=== PATIENT | female | born 1940 | race Caucasian/White ===

== ENCOUNTER → 2016-11-16 | Day surgery (SDC) | payer MEDICARE, OTHER ==
[~2016-11-16] MED LIST: ACETAMINOPHEN/HYDROcodone 325 MG/5 MG TAB ONE; ALPR.25 PO; BACITRACIN IM FOR SOLN 50,000 UNIT VIAL ONE; BLADDER MED PO; BUPIVACAINE/EPINEPHRINE 0.25% PF 30 ML VIAL ONE; BYST5TAB2 PO; CYMB60CA PO; GABA300C5 PO; GENTAMICIN SULFATE 80 MG/2 ML VIAL ONE; HYDR-3533 PO; LACTATED RINGER'S 1000 ML INJ 1,000 ML ONE; MORPHINE SULFATE 4 MG/ML INJ ONE; ONDANSETRON HCL 4 MG/2 ML VIAL IV PUSH ONE; PROPOFOL 200 MG/20 ML AMP IV ONE; SODIUM CHLOR 0.9% 250 ML INJ 250 ML IV ONE; SODIUM CHLORIDE 0.9% 20 ML VIAL ONE; VANCOMYCIN HCL 1000 MG VIAL ONE; ceFAZolin 2 GM PREMIX 50 ML ONE; ceFAZolin INJ 1,000 MG VIAL ONE
--- NOTE | 2016-11-16 10:14 | TN ---
cc: HANANE LOPEZ DATE OF SURGERY 11/16/2016 PREOPERATIVE DIAGNOSES 1. Osteoarthritis of the right knee. 2. Chondromalacia patellae. POSTOPERATIVE DIAGNOSIS 1. Osteoarthritis of the right knee. 2. Chondromalacia patellae. PROCEDURE 1. Right knee unicompartmental replacement arthroplasty, medial compartment 2. Partial patellectomy. SURGEON Hanane Lopez MD STEWARD/STEWARDESS TOURIST CLASS Tomas Lopez MD ANESTHESIA General. ESTIMATED BLOOD LOSS 100 cc. INDICATION This is a 76-year-old female with significant medial compartment arthritis. The patient has had extensive conservative care documented in the attached records including injections of cortisone, viscoelastic supplements, altered activities. She had a brace at one time. The patient continued to be painful and symptomatic. She presents for surgical treatment. NOTE Tomas Lopez MD, was my first aid officer through the entire surgical procedure. In my medical opinion his skill and care was necessary for the proper management of this patient. PROCEDURE The patient was brought to the operating, anesthetized in supine position. The right leg was placed in the arthroscopy jacques. The right leg was scrubbed with alcohol, followed by Hibiclens, followed by Chloraprep and draped sterilely. Antibiotics were given within a one-hour time limit. A time-out was done. After exsanguination, the tourniquet was inflated to 250 mmHg. An anterior incision was made and then median parapatellar arthrotomy was performed. The medial facet of the patella was resected with the oscillating saw, decreasing contacting forces. Deep retractors were positioned. There was severe arthritis in the medial compartment which was [id number]. The posterior facet was resected using the sizing guide. The tibia was then contoured free-hand for a #2 tibial inlay. The femur was then contoured for a #2 femoral inlay. A medial osteophyte was removed. The trial reduction showed excellent balancing in flexion and extension. A field block with 0.25% Marcaine with epinephrine was utilized. On the back table methacrylate was mixed and the components were cemented. Excess cement was removed. The tourniquet was let down. Hemostasis was controlled. A deep drain was brought through a separate stab incision. The arthrotomy was repaired with #2 Ticron sutures, the subcutaneous tissue with 2-0 Vicryl suture and the skin with running 2-0 and 3-0 Vicryl followed by benzoin and Steri-Strips. Sponge count, needle counts and instrument counts were all correct. The patient tolerated the procedure well and was taken to the recovery room in satisfactory condition. COMPONENTS Company: [employer]. Femur: Size 2, right medial, cemented, metal. Tibia: Size 2, 6.5 mm, all polyethylene, cemented . Hanane MD ESTRELLA Stephenson/SSB /9:45 AM /9:54 AM
== END | disposition home or self-care (01) ==
LOC: ESDC 06:02
PROVIDERS: ATTEND Orthopaedic Surgery Orthopaedic Surgery of the Spine
DX: M17.11 Unilateral primary osteoarthritis, right knee (principal); M22.41 Chondromalacia patellae, right knee
CPT/HCPCS: 01400; 27446; C1776; J0690; J1580; J2270; J2405; J3010; J3370; J7050; J7120

== ENCOUNTER 2017-11-12 03:45 | Emergency (ER) | payer MEDICARE, OTHER ==
[~2017-11-12] VITALS: Ht 167.6 cm; Wt 65.0 kg
[~2017-11-12 03:45] MED LIST changes: -ACETAMINOPHEN/HYDROcodone 325 MG/5 MG TAB ONE; -BACITRACIN IM FOR SOLN 50,000 UNIT VIAL ONE; -BUPIVACAINE/EPINEPHRINE 0.25% PF 30 ML VIAL ONE; -GENTAMICIN SULFATE 80 MG/2 ML VIAL ONE; -LACTATED RINGER'S 1000 ML INJ 1,000 ML ONE; -MORPHINE SULFATE 4 MG/ML INJ ONE; -ONDANSETRON HCL 4 MG/2 ML VIAL IV PUSH ONE; -PROPOFOL 200 MG/20 ML AMP IV ONE; -SODIUM CHLOR 0.9% 250 ML INJ 250 ML IV ONE; -SODIUM CHLORIDE 0.9% 20 ML VIAL ONE; -VANCOMYCIN HCL 1000 MG VIAL ONE; -ceFAZolin 2 GM PREMIX 50 ML ONE; -ceFAZolin INJ 1,000 MG VIAL ONE
[2017-11-12 04:11] VITALS: BP 141/79; PULSE 64; RESP 20; TEMP 97.5; O2SAT 100
[2017-11-12 04:27] VITALS: BP 144/81; PULSE 61; RESP 20; TEMP 97.5; O2SAT 100
[2017-11-12] MEDS ORDERED: HYDR-3516 (04:35)
[2017-11-12] MEDS ORDERED: DIAZ5TAB PO (04:36)
--- NOTE | 2017-11-12 04:43 | PD ---
HPI Chief Complaint: GI Complaint Time Seen by Provider: 04:31 Travel History International Travel<30 days: No Contact w/Intl Traveler<30days: No Traveled to known affect area: No History of Present Illness HPI The patient is a 77-year-old female that has a history of Cruz's esophagus and complains of periumbilical pain and midline epigastric pain along with nausea, vomiting and abdominal bloating tonight. After the pain began she took several hydrocodone tablets and then took 3, 5 mg diazepam tablets. She describes her pain as a 10 over 10 and dull type pain. The patient was just told that she has Crohn's disease. PFSH Past Medical History Anxiety: Yes Depression: Yes Cancer: Yes Cardiovascular Problems: Yes Hypertension: Yes Insomnia: Yes Respiratory: Yes (slight asthma) Tetanus Vaccination: Unknown Past Surgical History Tonsillectomy: Yes Other Surgery: Yes (r partial nephrectomy r/t ca, sinus sx) Social History Alcohol Use: Yes (cocktail daily at 5pm) Tobacco Use: No (quit 32 years ago) Substance Use: No Allergies-Medications (Allergen,Severity, Reaction): Coded Allergies: No Known Allergies (Verified Adverse Reaction, Unknown, 11/12/17) Reported Meds & Prescriptions Reported Meds & Active Scripts Active Reported Diazepam 5 Mg Tab 5 Mg PO TID PRN Hydrocodone-Acetamin 5-325 mg (Hydrocodone/Acetaminophen) 5 Mg-325 Mg Tablet [Bladder Med] 1 Tab PO DAILY Gabapentin 300 Mg Cap 300 Mg PO HS Cymbalta DR (Duloxetine HCl) 60 Mg Capdr 60 Mg PO DAILY Bystolic (Nebivolol) 5 Mg Tab 5 Mg PO DAILY Xanax (Alprazolam) 0.25 Mg Tab 0.25 Mg PO Q6H PRN Review of Systems Except as stated in HPI: all other systems reviewed are Neg Physical Exam Narrative GENERAL: The patient is alert, oriented 3 and slight apparent distress with her abdominal discomfort. Her vital signs show blood pressure 141/79 but are otherwise normal. SKIN: Focused skin assessment warm/dry. HEAD: Atraumatic. Normocephalic. EYES: Pupils equal and round. No scleral icterus. No injection or drainage. ENT: No nasal bleeding or discharge. Mucous membranes pink and moist. NECK: Trachea midline. No JVD. CARDIOVASCULAR: Regular rate and rhythm. No murmur appreciated. RESPIRATORY: No accessory muscle use. Clear to auscultation. Breath sounds equal bilaterally. GASTROINTESTINAL: Abdomen soft, with slight tenderness to direct palpation in the periumbilical area and midline epigastrium, nondistended. Hepatic and splenic margins not palpable. No guarding or rebound is present. Christensen's sign is negative. MUSCULOSKELETAL: No obvious deformities. No clubbing. No cyanosis. No edema. NEUROLOGICAL: Awake and alert. No obvious cranial nerve deficits. Motor grossly within normal limits. Normal speech. PSYCHIATRIC: Appropriate mood and affect; insight and judgment normal. Data Data Last Documented VS Vital Signs Date Time Temp Pulse Resp B/P (MAP) Pulse Ox O2 Delivery O2 Flow Rate FiO2 11/12/17 06:32 78 18 144/76 (98) 97 Room Air 11/12/17 04:27 97.5 Orders Orders Complete Blood Count With Diff (11/12/17 04:44) Comprehensive Metabolic Panel (11/12/17 04:44) Lipase (11/12/17 04:44) Urinalysis - C+S If Indicated (11/12/17 04:44) Ct Abd/Pel W Iv Contrast(Rout) (11/12/17 04:44) Iv Access Insert/Monitor (11/12/17 04:44) Ecg Monitoring (11/12/17 04:44) Oximetry (11/12/17 04:44) Morphine Inj (Morphine Inj) (11/12/17 04:45) Ondansetron Inj (Zofran Inj) (11/12/17 04:45) Pantoprazole Inj (Protonix Inj) (11/12/17 04:45) Sodium Chlor 0.9% 1000 Ml Inj (Ns 1000 M (11/12/17 04:44) Sodium Chloride 0.9% Flush (Ns Flush) (11/12/17 04:45) Famotidine Inj (Pepcid Inj) (11/12/17 04:45) Iohexol 350 Inj (Omnipaque 350 Inj) (11/12/17 06:21) Labs Laboratory Tests Test 11/12/17 04:58 White Blood Count 14.3 TH/MM3 Red Blood Count 4.53 MIL/MM3 Hemoglobin 14.1 GM/DL Hematocrit 41.3 % Mean Corpuscular Volume 91.1 FL Mean Corpuscular Hemoglobin 31.0 PG Mean Corpuscular Hemoglobin Concent 34.1 % Red Cell Distribution Width 12.1 % Platelet Count 338 TH/MM3 Mean Platelet Volume 7.7 FL Neutrophils (%) (Auto) 79.7 % Lymphocytes (%) (Auto) 10.3 % Monocytes (%) (Auto) 5.8 % Eosinophils (%) (Auto) 1.7 % Basophils (%) (Auto) 2.5 % Neutrophils # (Auto) 11.4 TH/MM3 Lymphocytes # (Auto) 1.5 TH/MM3 Monocytes # (Auto) 0.8 TH/MM3 Eosinophils # (Auto) 0.2 TH/MM3 Basophils # (Auto) 0.4 TH/MM3 CBC Comment DIFF FINAL Differential Comment Blood Urea Nitrogen 25 MG/DL Creatinine 1.20 MG/DL Random Glucose 93 MG/DL Total Protein 8.1 GM/DL Albumin 3.9 GM/DL Calcium Level 9.6 MG/DL Alkaline Phosphatase 75 U/L Aspartate Amino Transf (AST/SGOT) 16 U/L Alanine Aminotransferase (ALT/SGPT) 21 U/L Total Bilirubin 0.4 MG/DL Sodium Level 138 MEQ/L Potassium Level 3.9 MEQ/L Chloride Level 105 MEQ/L Carbon Dioxide Level 26.5 MEQ/L Anion Gap 7 MEQ/L Estimat Glomerular Filtration Rate 44 ML/MIN Lipase 227 U/L MDM Medical Decision Making Medical Screen Exam Complete: Yes Emergency Medical Condition: Yes Medical Record Reviewed: Yes Interpretation(s) The CT abdomen/pelvis shows a nonobstructing bowel gas pattern with no inflammatory change. The terminal ileum is within normal limits. There is a large sclerotic area involving the left medial ileum which is nonspecific. This could represent a large bowl island. Metastatic disease is less likely. Differential Diagnosis Exacerbation of Crohn's disease, irritable bowel syndrome, small bowel obstruction, colitis, cholecystitis, appendicitis, diverticulitis Narrative Course The patient is feeling normal now, she states she could go dancing. It is now 0650. She may have had a partial small bowel obstruction that relieved itself. Nevertheless, the patient will need to follow-up with a primary care physician. She should increase liquid intake. She is given Zofran for nausea this time. Diagnosis Primary Impression: Exacerbation of Crohn's disease Additional Instructions: Crease clear liquid intake and follow-up with her primary care physician. If you have nausea I prescribed Zofran, one tablet every 6 hours as needed. This probably was the Crohn's disease acting up. Med/Other Pt SpecificInfo: Prescription(s) given Scripts Ondansetron (Zofran) 4 Mg Tab 4 MG PO Q6HR Y for NAUSEA OR VOMITING, #21 TAB 0 Refills Prov: Frankie Nicole MD 11/12/17 Disposition: 01 DISCHARGE HOME Condition: Stable Frankie Nicole MD Nov 12, 2017 04:43
[2017-11-12] MEDS ORDERED: SODIUM CHLOR 0.9% 1000 ML INJ 1,000 ML IV SCH (04:44)
[2017-11-12] MEDS ORDERED: ONDANSETRON HCL 4 MG/2 ML VIAL IVP ONE (04:45)
[2017-11-12] MEDS ORDERED: FAMOTIDINE 20 MG/2 ML VIAL IV PUSH ONE (04:45)
[2017-11-12] MEDS ORDERED: SODIUM CHLORIDE 0.9% FLUSH 10 ML FLUSH IV FLUSH PRN (04:45)
[2017-11-12] MEDS ORDERED: MORPHINE SULFATE 4 MG/ML INJ IV PUSH ONE (04:45)
[2017-11-12] MEDS ORDERED: PANTOPRAZOLE SODIUM 40 MG VIAL IVP ONE (04:45)
[2017-11-12 05:31] LABS: AUTOMATED NEUTROPHIL # 11.4 TH/MM3 (1.8-7.7); BASOPHIL # 0.4 TH/MM3 (0-0.2); BASOPHIL % 2.5 % (0.0-2.0); EOSINOPHIL # 0.2 TH/MM3 (0-0.4); EOSINOPHIL % 1.7 % (0.0-4.0); HEMATOCRIT 41.3 % (35.0-46.0); HEMOGLOBIN 14.1 GM/DL (11.6-15.3); LYMPH % 10.3 % (9.0-44.0); LYMPHOCYTE # 1.5 TH/MM3 (1.0-4.8); MEAN CELL VOLUME 91.1 FL (80.0-100.0); MEAN CORPUSCULAR HGB CONC 34.1 % (32.0-36.0); MEAN PLATELET VOLUME 7.7 FL (7.0-11.0); MONO % 5.8 % (0.0-8.0); MONOCYTE # 0.8 TH/MM3 (0-0.9); NEUT % 79.7 % (16.0-70.0); PLATELET COUNT 338 TH/MM3 (150-450); RED BLOOD COUNT 4.53 MIL/MM3 (4.00-5.30); RED CELL DISTRIBUTION WIDTH 12.1 % (11.6-17.2); WHITE BLOOD COUNT 14.3 TH/MM3 (4.0-11.0)
[2017-11-12 05:43] LABS: CHLORIDE 105 MEQ/L (98-107); SODIUM (NA) 138 MEQ/L (136-145)
[2017-11-12 05:47] LABS: ALBUMIN 3.9 GM/DL (3.4-5.0); BICARBONATE 26.5 MEQ/L (21.0-32.0); CALCIUM 9.6 MG/DL (8.5-10.1); GLUCOSE,RANDOM 93 MG/DL (74-106)
[2017-11-12 05:48] LABS: BLOOD UREA NITROGEN 25 MG/DL (7-18)
[2017-11-12 05:50] LABS: ALT (GPT) 21 U/L (10-53); AST (GOT) 16 U/L (15-37); GLOMERULAR FILTRATION RATE 44 ML/MIN (>89)
[2017-11-12 05:52] LABS: TOTAL BILIRUBIN ADULT 0.4 MG/DL (0.2-1.0); TOTAL PROTEIN 8.1 GM/DL (6.4-8.2)
[2017-11-12 05:53] LABS: ALKALINE PHOSPHATASE 75 U/L (45-117)
[2017-11-12 06:02] VITALS: O2SAT 97
[2017-11-12] MEDS ORDERED: IOHEXOL 350 MG/ML 10 ML VIAL (for RAD DIAG) IVCONTRAST ONE (06:21)
--- NOTE | 2017-11-12 06:28 | RADRPT ---
EXAM DATE/TIME: 11/12/2017 06:05 [facility] COMPARISON: No previous studies available for comparison. INDICATIONS : Periumbilical pain. Nausea. Vomiting. IV CONTRAST: 100 cc Omnipaque 350 (iohexol) IV ORAL CONTRAST: No oral contrast ingested. RADIATION DOSE: 10.78 CTDIvol (mGy) MEDICAL HISTORY : Hypertension. Renal cell carcinoma. SURGICAL HISTORY : Partial right nephrectomy. ENCOUNTER: Initial ACUITY: 1 day PAIN SCALE: 8/10 LOCATION: Umbilical TECHNIQUE: Volumetric scanning of the abdomen and pelvis was performed. Using automated exposure control and ad justment of the mA and/or kV according to patient size, radiation dose was kept as low as reasonably achievable to obtain optimal diagnostic quality images. DICOM format image data is available electro nically for review and comparison. FINDINGS: LOWER LUNGS: The visualized lower lungs are clear. LIVER: Homogeneous density without lesion. There is no dilation of the biliary tree. No calcified gallston es. The gallbladder is unremarkable. SPLEEN: Normal size without lesion. PANCREAS: Within normal limits. KIDNEYS: Normal in size and shape. There is no mass, stone or hydronephrosis. ADRENAL GLANDS: Within normal limits. VASCULAR: There is no aortic aneurysm. BOWEL/MESENTERY: No oral contrast was given limiting the sensitivity. The stomach, small bowel, and colon demonstrate no acute abnormality. There is no free intraperitoneal air or fluid. ABDOMINAL WALL: Within normal limits. RETROPERITONEUM: There is no lymphadenopathy. BLADDER: No wall thickening or mass. REPRODUCTIVE: Within normal limits. INGUINAL: There is no lymphadenopathy or hernia. MUSCULOSKELETAL: Osteopenia, scoliosis and degenerative changes are present. There is a area of sclerotic bone density involving the left medial ilium measuring up to approximately 3.5 x 1.4 cm. CONCLUSION: 1. Nonobstructive bowel gas pattern with no inflammatory change. The terminal ileum is within normal limits. 2. Large sclerotic area involving the left medial ilium which is nonspecific. This could represent a large bone island. Metastatic disease is less likely. Ramiro Valle MD on November 12, 2017 at 6:24 Board Certified Radiologist. This report was verified electronically.
[2017-11-12 06:32] VITALS: BP 144/76; PULSE 78; RESP 18; O2SAT 97
[2017-11-12] MEDS ORDERED: ZOFR4TAB PO (06:52)
== END 2017-11-12 07:12 | disposition home or self-care (01) ==
LOC: PHED 03:45
DX: K50.90 Crohn's disease, unspecified, without complications (principal); K22.70 Barrett's esophagus without dysplasia; F41.9 Anxiety disorder, unspecified; F32.9 Major depressive disorder, single episode, unspecified; I10 Essential (primary) hypertension; J45.909 Unspecified asthma, uncomplicated; G47.00 Insomnia, unspecified; Z85.528 Personal history of other malignant neoplasm of kidney; Z87.891 Personal history of nicotine dependence
CPT/HCPCS: 74177; 80053; 83690; 85025; 96361; 96374; 96375; 99285; C9113; J2270; J2405; J7030; Q9967